=== PATIENT | female | born 1980 ===

== ENCOUNTER 2019-03-13 23:16 | Emergency (ER) | payer OTHER ==
[2019-03-13 23:34] VITALS: RESP 16
[2019-03-14] MEDS ORDERED: Sodium Chloride 0.9% 1,000 ML IV STA (00:06)
--- NOTE | 2019-03-14 00:12 | ED PDOC ---
HPI: Abdomen Time Seen by Provider: 03/13/19 23:47 Chief Complaint (Nursing): Abdominal Pain Chief Complaint (Provider): Abdominal Pain History Per: Patient, Rn First Assist (Kelly Dog Sitter - [id number]) Onset/Duration Of Symptoms: Days (x6) Associated Symptoms: Nausea. denies: Vomiting Additional Complaint(s): 38 y/o female with history of gastritis presents to the ED for abdominal pain a ssociated with nausea, onset x7 days ago on Friday. Patient describes having colic-y upper abdominal pain. Patient states that whenever the pain comes back it gets worse in intensity. She notes that it is not related to food consumption and that it is different from her regular gastritis pain. Patient reports she has never had any issues with her gallbladder or liver before. She states she was feeling nauseous but did not have vomiting; she also states having diarrhea earlier but that has since resolved. PMD: None Past Medical History Reviewed: Historical Data, Nursing Documentation, Vital Signs Vital Signs: Last Vital Signs Temp 98.7 F 03/13/19 23:29 Pulse 72 03/13/19 23:29 Resp 16 03/13/19 23:29 BP 135/83 03/13/19 23:29 Pulse Ox 98 03/13/19 23:29 Primary Care Provider: FAMILY PROVIDER,NO - Medical History PMH: Gastritis - Family History Family History: States: Unknown Family Hx - Home Medications Home Medications: Ambulatory Orders Medication Instructions Recorded Dicyclomine [Bentyl] 20 mg PO BID #30 tab 03/14/19 Ibuprofen [Motrin Tab] 600 mg PO Q6 #30 tab 03/14/19 Ondansetron ODT [Zofran ODT] 4 mg PO Q8 PRN #12 odt 03/14/19 - Allergies Allergies/Adverse Reactions: Allergies Allergy/AdvReac Type Severity Reaction Status Date / Time No Known Allergies Allergy Verified 03/14/19 00:05 Review of Systems ROS Statement: Except As Marked, All Systems Reviewed And Found Negative Gastrointestinal: Positive for: Nausea, Abdominal Pain. Negative for: Vomiting, Diarrhea Physical Exam - Reviewed Nursing Documentation Reviewed: Yes Vital Signs Reviewed: Yes - Physical Exam Appears: Positive for: Well, Non-toxic, No Acute Distress Head Exam: Positive for: ATRAUMATIC, NORMAL INSPECTION, NORMOCEPHALIC Skin: Positive for: Normal Color, Warm, DRY Eye Exam: Positive for: EOMI, Normal appearance, PERRL ENT: Positive for: Normal ENT Inspection Neck: Positive for: Normal, Painless ROM Cardiovascular/Chest: Positive for: Regular Rate, Rhythm. Negative for: Murmur Respiratory: Positive for: Normal Breath Sounds. Negative for: Respiratory Distress Gastrointestinal/Abdominal: Positive for: Soft, Tenderness (mild epigastric tenderness to palpation), Other (negative McBurney's point tenderness, negative Ibrahim's). Negative for: Guarding, Rebound Back: Positive for: Normal Inspection Extremity: Positive for: Normal ROM. Negative for: Pedal Edema, Deformity Neurological/Psych: Positive for: Awake, Alert, Normal Tone. Negative for: Motor/Sensory Deficits - Laboratory Results Result Diagrams: 03/14/19 00:21 03/14/19 00:21 - ECG O2 Sat by Pulse Oximetry: 98 (RA) Pulse Ox Interpretation: Normal Medical Decision Making Medical Decision Making: Time: 00:05 A/P: Gastritis vs peptic ulcer disease. Less likely biliary colic or p ancreatitis. * CT Abd Pelvis * CMP * Lipase * CBC w/ diff * IV Fluids * Pepcid 20 mg * Zofran 4 mg 133 Clinical statement: Pain. Technique: Multiple axial CT images were obtained from the base of the lungs through the floor of the pelvis utilizing 5 mm axial slices after administration of nonionic intravenous contrast. Coronal and sagittal reconstructions were also obtained. Comparison: None. Findings: Chest: The visualized lung bases are clear. Abdomen: The liver, spleen, pancreas, kidneys, gallbladder, and adrenal glands are unremarkable. The aorta is within normal limits. There is no evidence of abdominal lymphadenopathy or ascites. There is moderately severe diffuse small bowel wall thickening, with fluid distention small bowel. There is no focal evidence of obstruction. Pelvis: Moderate amount of stool fills the colon. There is mild fluid distention and bowel wall thickening seen in the cecum and right colon. The urinary bladder is within normal limits. The other pelvic structures appear grossly intact. There is no evidence of pelvic lymphadenopathy. There is a small amount of pelvic ascites. Bones: There are no suspicious osseous abnormalities seen. Impression:1. Moderately severe diffuse enteritis. 2. Moderate constipation. Mild right-sided colitis. 3. Small amount of pelvic ascites. Electronically signed on March 14, 2019 1:33:30 AM EDT by: Levi Barraza M.D., M.B.A., Certified By [employer] Trained MRI and CT Specialist 02:56 Upon provider evaluation patient is medically stable, and requires no further treatment in the ED at this time. Patient will be discharged home. Counseling was provided and all questions were answered regarding diagnosis. There is agreement to discharge plan. Return if symptoms persist or worsen. Results were explained using certified frame stripper and crusher EDRaji Lee. Scribe Attestation: Documented by Jose Elias Mahoney, acting as a scribe Taylor Jiang MD. Provider Scribe Attestation: All medical record entries made by the Scribe were at my direction and personally dictated by me. I have reviewed the chart and agree that the record accurately reflects my personal performance of the history, physical exam, medical decision making, and the department course for this patient. I have also personally directed, reviewed, and agree with the discharge instructions and disposition. Disposition - Clinical Impression Clinical Impression: Enteritis - Disposition Referrals: [facility] [Outside] Disposition: Routine/Home Disposition Time: 02:56 Condition: IMPROVED Additional Instructions: ANKUR FOLEY, thank you for letting us take care of you today. Your provider was Mane Jiang MD and you were treated for STOMACH PAIN. The emergency medical care you received today was directed at your acute symptoms. If you were prescribed any medication, please fill it and take as directed. It may take several days for your symptoms to resolve. Return to the Emergency Department if your symptoms worsen, do not improve, or if you have any other problems. Please contact your doctor or call one of the physicians/clinics you have been referred to that are listed on the Patient Visit Information form that is included in your discharge packet. Bring any paperwork you were given at discharge with you along with any medications you are taking to your follow up visit. Our treatment cannot replace ongoing medical care by a primary care provider outside of the emergency department. Thank you for allowing the [facility] team to be part of your care today. If you had an X-Ray or CT scan: A Radiologist will review the ED reading if any change in treatment is needed we will contact you. If you had a blood, urine, or wound culture: It will take several days for the results, if any change in treatment is needed we will contact you. If you had an STI test: It will take 48 hours for the results. Please call after 1 week if you have not heard back. Prescriptions: Dicyclomine [Bentyl] 20 mg PO BID #30 tab Ibuprofen [Motrin Tab] 600 mg PO Q6 #30 tab Ondansetron ODT [Zofran ODT] 4 mg PO Q8 PRN #12 odt PRN Reason: Nausea/Vomiting Instructions: Diarrhea in Adolescents and Adults Forms: [employer] (Korean) Print Language: CITIZEN OF [place]
[2019-03-14 00:24] LABS: BASO % 0.4 % (0.0-2.0); EOS # 1.3 K/uL (0.0-0.7); EOS % 13.8 % (0.0-4.0); LYMPH # 2.9 K/uL (1.0-4.3); LYMPH % 31.5 % (20.0-40.0); MEAN CELL VOLUME 82.7 fl (81.0-99.0); MEAN CORPUSCULAR HEMOGLOBIN 27.4 pg (27.0-31.0); MEAN CORPUSCULAR HGB CONC 33.1 g/dL (33.0-37.0); MEAN PLATELET VOLUME 7.8 fl (7.2-11.7); MONO # 0.6 K/uL (0.0-0.8); MONO % 6.5 % (0.0-10.0); NEUT # 4.4 K/uL (1.8-7.0); NEUT % 47.8 % (50.0-75.0); NRBC % 0.1 % (0.0-0.0); RBC 4.73 Mil/uL (3.80-5.20); RED CELL DISTRIBUTION WIDTH 13.5 % (11.5-14.5); WHITE BLOOD COUNT 9.2 K/uL (4.8-10.8)
[2019-03-14 00:32] LABS: BLOOD UREA NITROGEN 19 mg/dl (7-17); GFR NON-AFRICAN AMERICAN > 60
[2019-03-14 00:33] LABS: ALB/GLOB RATIO 1.3 (1.0-2.1); ALBUMIN 4.3 g/dL (3.5-5.0); ALT/SGPT 22 U/L (9-52); AST/SGOT 22 U/L (14-36); CALCIUM 9.3 mg/dL (8.4-10.2); LIPASE 78 U/L (23-300)
[2019-03-14] MEDS ORDERED: Sodium Chloride 0.9% 50 ML IV ONE (01:01)
[2019-03-14] MEDS ORDERED: Iohexol 300 100 ML IJ ONE (01:01)
[2019-03-14 03:40] VITALS: BP 128/80; PULSE 70; TEMP 98.2
[2019-03-14 04:06] VITALS: O2SAT 98
--- NOTE | 2019-03-14 15:36 | CT ---
Date of service: 03/14/2019 PROCEDURE: CT Abdomen and Pelvis with contrast HISTORY: epig pain x 1 week COMPARISON: None. TECHNIQUE: Following the intravenous administration of iodinated contrast material, a CT examination of the abdomen and pelvis was performed from the domes of the diaphragms to the symphysis pubis with reformatted datasets provided in axial, sagittal and coronal planes. Oral contrast was not administered as per referring physician request. Contrast dose: Omnipaque 300, 90 cc Radiation dose: Total exam DLP = 217.63 mGy-cm. This CT exam was performed using one or more of the following dose reduction techniques: Automated exposure control, adjustment of the mA and/or kV according to patient size, and/or use of iterative reconstruction technique. FINDINGS: LOWER THORAX: Motion artifacts degrade quality of lung base imaging. No suspicious findings appreciated as submitted. LIVER: There is a 9 mm area of focal enhancement at the dome of the liver, limited in evaluation due to its small size and limited phase of contrast enhancement. The remainder of the liver appears unremarkable. No intrahepatic biliary dilatation appreciated. GALLBLADDER AND BILE DUCTS: Gallbladder is largely contracted. No radiodense cholelithiasis related. No significant common bile duct dilatation appreciated. PANCREAS: Unremarkable. No gross lesion or ductal dilatation. SPLEEN: Unremarkable. ADRENALS: Unremarkable. No mass. KIDNEYS AND URETERS: Unremarkable. No hydronephrosis. No solid mass. VASCULATURE: Unremarkable. No aortic aneurysm. No aortic atherosclerotic calcification or mural plaque present. BOWEL: Evaluation of the gastrointestinal tract is limited due to the lack of oral contrast administration. Stomach is completely collapsed and limited evaluation. No bowel obstruction apparent however thickening of proximal small bowel loops is question in the left upper quadrant and segmental enteritis is therefore suspected. Limited pelvic ascites is identified with none in the abdomen. Liquified fecal material seen at proximal and mid descending colon segments but not in the rectosigmoid. Further clinical correlation advised. No gross colonic mural thickening appreciable as imaged. APPENDIX: High retrocecal appendix without acute findings. PERITONEUM: Unremarkable. No free fluid. No free air. LYMPH NODES: Unremarkable. No enlarged lymph nodes. BLADDER: Unremarkable. REPRODUCTIVE: Unremarkable. BONES: No acute fracture. OTHER FINDINGS: None. IMPRESSION: 1. Findings suspicious for proximal small bowel segmental enteritis with trace pelvic ascites noted. No bowel obstruction or free intra peritoneal gas collection. No definitive abscess. 2. Stomach is collapsed and poorly evaluated. Lack of oral contrast limits evaluation the gastrointestinal tract. Preliminary report provided by Bo, 03/14/2019, 1:33 a.m..
== END 2019-03-14 03:05 | disposition home or self-care (01) ==
LOC: H.ER 23:16
DX: K52.9 Noninfective gastroenteritis and colitis, unspecified (principal)
CPT/HCPCS: 74177; 80053; 81025; 83690; 85025; 96374; 96375; 99284; J1885; J2405; J2765; J7030; Q9967

== ENCOUNTER 2019-03-17 15:36 | Emergency (ER) | payer OTHER ==
[2019-03-17 15:47] VITALS: O2SAT 99
[2019-03-17] MEDS ORDERED: Atrop/Hyos/Scop/PhenoB Elixir PO STA (16:10)
[2019-03-17] MEDS ORDERED: Sodium Chloride 0.9% 1,000 ML IV STA (16:10)
[2019-03-17] MEDS ORDERED: Alum-Mag Hydrox-Simethicone Susp (30 mL) PO STA (16:10)
[2019-03-17] MEDS ORDERED: Alum-Mag Hydrox-Simethicone Susp (30 mL) ONE (16:31)
--- NOTE | 2019-03-17 16:36 | ED PDOC ---
HPI: Abdomen Time Seen by Provider: 03/17/19 15:59 Chief Complaint (Nursing): Abdominal Pain Chief Complaint (Provider): Abdominal Pain History Per: Patient History/Exam Limitations: no limitations Onset/Duration Of Symptoms: Days, Waxing/Waning Current Symptoms Are (Timing): Still Present Additional Complaint(s): 38 y/o female with no significant PMHx presents to the ED for evaluation of abdominal pain, onset ten days ago. Patient reports pain is located mostly in t he upper abdomen. Patient describes pain as intermittent "cramping" and waxes and wanes in intensity. Patient notes pain is associated with nausea, chills and intermittent episodes of diarrhea. Patient states symptoms went away but returned two days. Patient reports of having 5 episodes of watery, non-bloody diarrhea and states she has been trying to eat when pain is not present. Patient notes pain is not associated with eating. Of note, patient was here 4 days ago on 03/13/2019 for the same pain. At that time, patient had normal blood work but CT demonstrated colitis and enteritis. Patient was prescribed Zofran and Bentyl with no improvement in symptoms. Otherwise, patient denies fever, urinary symptoms, vomiting, vaginal symptoms, recent travel, known sick contacts and recent antibiotic use. PMD: no provider Past Medical History Reviewed: Historical Data, Nursing Documentation, Vital Signs Vital Signs: Last Vital Signs Temp 98.1 F 03/17/19 15:44 Pulse 60 03/17/19 15:44 Resp 16 03/17/19 15:44 BP 126/75 03/17/19 15:44 Pulse Ox 99 03/17/19 15:44 Primary Care Provider: FAMILY PROVIDER,NO - Medical History PMH: Gastritis - Surgical History Surgical History: No Surg Hx - Family History Family History: States: No Known Family Hx - Social History Current smoker - smoking cessation education provided: No Alcohol: None Drugs: Denies - Home Medications Home Medications: Ambulatory Orders Medication Instructions Recorded Dicyclomine [Bentyl] 20 mg PO BID #30 tab 03/14/19 Ibuprofen [Motrin Tab] 600 mg PO Q6 #30 tab 03/14/19 Ondansetron ODT [Zofran ODT] 4 mg PO Q8 PRN #12 odt 03/14/19 Acetaminophen [Tylenol Extra 1,000 mg PO Q6 PRN #100 tablet 03/17/19 Strength] Ciprofloxacin [Cipro] 1 tab PO BID #20 tab 03/17/19 Phenobarb/Hyoscy/Atropine/Scop 10 ml PO QID PRN #250 elixir 03/17/19 [ Elixir] Saccharomyces Boulardi [Florastor] 500 mg PO BID #28 cap 03/17/19 metroNIDAZOLE [Flagyl] 500 mg PO TID #30 tab 03/17/19 - Allergies Allergies/Adverse Reactions: Allergies Allergy/AdvReac Type Severity Reaction Status Date / Time No Known Allergies Allergy Verified 03/17/19 15:44 Review of Systems ROS Statement: Except As Marked, All Systems Reviewed And Found Negative (as per HPI) Constitutional: Positive for: Chills. Negative for: Fever Gastrointestinal: Positive for: Nausea, Abdominal Pain, Diarrhea. Negative for: Vomiting Genitourinary Female: Negative for: Dysuria, Frequency, Hematuria, Vaginal Discharge, Vaginal Bleeding Physical Exam - Reviewed Nursing Documentation Reviewed: Yes Vital Signs Reviewed: Yes - Physical Exam Appears: Positive for: In Acute Distress (moderate painful distress) Head Exam: Positive for: ATRAUMATIC, NORMOCEPHALIC Skin: Positive for: Warm, Dry Eye Exam: Positive for: Conjunctival injection ENT: Positive for: Moist Mucous Membranes. Negative for: Pharyngeal Erythema Neck: Positive for: Painless ROM, Supple Cardiovascular/Chest: Positive for: Regular Rate, Rhythm. Negative for: Murmur Respiratory: Positive for: Normal Breath Sounds. Negative for: Respiratory Distress Gastrointestinal/Abdominal: Positive for: Bowel Sounds (Normal active bowel sounds.), Soft, Tenderness (Epigastric and Bilateral Upper Quadrant tenderness to palpation. ). Negative for: Mass, Guarding, Rebound Back: Positive for: Normal Inspection. Negative for: Decreased ROM Extremity: Positive for: Normal ROM. Negative for: Deformity Lymphatic: Negative for: Adenopathy Neurological/Psych: Positive for: Awake, Alert. Negative for: Motor/Sensory Deficits - Laboratory Results Result Diagrams: 03/17/19 16:58 03/17/19 16:58 - ECG O2 Sat by Pulse Oximetry: 99 (RA) Pulse Ox Interpretation: Normal Medical Decision Making Medical Decision Making: Time: 1609 Impression: Abdominal Pain Presentation is consistent with CT findings. At this time, patient will likely benefit with initiation of antibiotics. Additional differentials include but not limited to electrolyte abnormality, deh ydration, pancreatitis and dehydration. Plan: -- CMP -- Lact Acid, Plasma -- Lipase -- Magnesium -- Phosphorus -- ED Urine -- ED Urine Dipstick -- CBC with Differentials -- 10 ml PO -- Lidocaine 2% Viscous 10 ml PO -- Maalox Plus 30 ml PO -- Sodium Chloride IV 1000 mls/hr -- Protonix Inj 40 mg IVP -- Zofran Inj 8 mg IV -- Blood Culture -- Ova and Parasite -- Stool Culture -- IV Insertion -- C Diff Toxin A B Labs demonstrate leukocytosis IV cipro/flagyl ordered. DW pt findings and plan of care. Pt eager to go home. Stable for discharge 1829 ---- Scribe Attestation: Documented by Rustam Rico, acting as a scribe for Emily Kohli MD. Provider Scribe Attestation: All medical record entries made by the Scribe were at my direction and personally dictated by me. I have reviewed the chart and agree that the record accurately reflects my personal performance of the history, physical exam, medical decision making, and the department course for this patient. I have also personally directed, reviewed, and agree with the discharge instructions and disposition. Disposition - Clinical Impression Clinical Impression: Colitis, Enteritis - Disposition Referrals: [facility] [place] [Outside] ([facility] [facility]) Disposition: Routine/Home Disposition Time: 18:00 Condition: STABLE Prescriptions: Acetaminophen [Tylenol Extra Strength] 1,000 mg PO Q6 PRN #100 tablet PRN Reason: FEVER OR PAIN Ciprofloxacin [Cipro] 1 tab PO BID #20 tab metroNIDAZOLE [Flagyl] 500 mg PO TID #30 tab Phenobarb/Hyoscy/Atropine/Scop [ Elixir] 10 ml PO QID PRN #250 elixir PRN Reason: Abdominal pain Saccharomyces Boulardi [Florastor] 500 mg PO BID #28 cap Instructions: Colitis (DC) Forms: [facility] School/Work Excuse Print Language: [place]
[2019-03-17 17:02] LABS: BASO % 0.1 % (0.0-2.0); EOS # 0.7 K/uL (0.0-0.7); EOS % 5.6 % (0.0-4.0); HEMOGLOBIN 13.8 g/dL (12.0-16.0); LYMPH # 1.3 K/uL (1.0-4.3); LYMPH % 9.7 % (20.0-40.0); MEAN CELL VOLUME 82.5 fl (81.0-99.0); MEAN CORPUSCULAR HEMOGLOBIN 27.4 pg (27.0-31.0); MEAN CORPUSCULAR HGB CONC 33.2 g/dL (33.0-37.0); MEAN PLATELET VOLUME 7.7 fl (7.2-11.7); MONO # 0.5 K/uL (0.0-0.8); MONO % 3.7 % (0.0-10.0); NEUT # 10.7 K/uL (1.8-7.0); NEUT % 80.9 % (50.0-75.0); NRBC % 0.1 % (0.0-0.0); PLATELET COUNT 348 K/uL (130-400); RBC 5.03 Mil/uL (3.80-5.20); RED CELL DISTRIBUTION WIDTH 13.3 % (11.5-14.5); WHITE BLOOD COUNT 13.2 K/uL (4.8-10.8)
[2019-03-17] MEDS ORDERED: metroNIDAZOLE 500mg/100ml NS 100 ML IV STA (17:15)
[2019-03-17] MEDS ORDERED: Ciprofloxacin 400mg/200ml D5W 400 MG/200 ML BAG IV STA (17:15)
[2019-03-17] MEDS ORDERED: Pantoprazole 40 mg EC Tab PO STA (17:16)
[2019-03-17 17:21] LABS: ALB/GLOB RATIO 1.3 (1.0-2.1); ALBUMIN 4.5 g/dL (3.5-5.0); ALT/SGPT 18 U/L (9-52); AST/SGOT 28 U/L (14-36); BLOOD UREA NITROGEN 17 mg/dl (7-17); CALCIUM 9.4 mg/dL (8.4-10.2); GFR NON-AFRICAN AMERICAN > 60; LIPASE 41 U/L (23-300)
[2019-03-17 17:36] LABS: EOSINOPHIL 6 % (0-7); LYMPHOCYTE 10 % (20-50); MONOCYTE 5 % (0-10); NEUTROPHIL 79 % (42-75); PLATELET ESTIMATE NORMAL (NORMAL); TOTAL CELLS COUNTED 100
[2019-03-17 19:59] VITALS: BP 126/77; PULSE 88; RESP 18; TEMP 98
== END 2019-03-17 18:47 | disposition home or self-care (01) ==
LOC: H.ER 15:36
DX: K52.9 Noninfective gastroenteritis and colitis, unspecified (principal)
CPT/HCPCS: 80053; 81025; 83605; 83690; 83735; 84100; 85025; 87040; 99284; J2405; J7030